=== PATIENT | male | born 1940 | race Caucasian/White ===

== ENCOUNTER 2020-07-05 08:11 | Outpatient (REF) | payer MEDICARE, SELFPAY | END 2020-07-05 08:40 | disposition other institution (70) | LOC: HO.SH 08:11 | PROVIDERS: PCP Internal Medicine; Referring Provider Internal Medicine; Visit Provider Internal Medicine | DX: Z13.89 Encounter for screening for other disorder (principal) ==

== ENCOUNTER 2020-07-05 09:00 | Outpatient (REF) | payer MEDICARE, SELFPAY ==
--- NOTE | 2020-07-05 13:36 | MHC.AU.P13 ---
Adult Audiological Evaluation Date of Visit: 07/05/20 Reason for Appointment: Audiologic re-evaluation to determine possible change in hearing ability prior to fitting of new hearing aids. Previous Hearing Test Results: 1940 Mild dropping to profound high frequency sensorineural hearing loss bilaterally. Speech understanding was 48% for the right ear and 36% for the left ear at a listening level of 85 dB HL. Hearing Instrument History- Right Ear: Kindergarten Paraprofessional: [employer] Model: TracsisEO P90-13T Serial Number: [id number] Battery Size: 13 Warranty: 09/25/2023 Service Plan: Repair and L&D Hearing Instrument History- Left Ear: Kindergarten Paraprofessional: [employer] Model: TracsisEAPU Solutions P90-13T Serial Number: [id number] Battery Size: 13 Warranty: 09/25/2023 Service Plan: Repair and L&D Otoscopy: Right Ear: Unremarkable Left Ear: Unremarkable Tympanometry: Right Ear: Normal Middle Ear System (Type A) Left Ear: Normal Middle Ear System (Type A) Hearing Evaluation: Transducer(s) Used: Insert Earphones Method: Conventional Audiometry Stimuli Used: Pure Tones Right Ear: Description of Hearing: Mild dropping to profound sensorineural hearing loss Left Ear: Description of Hearing: Mild dropping to profound sensorineural hearing loss Speech Recognition Threshold (SRT): Method Used: Monitored Live Voice Stimuli Used: Spondee Words Right Ear: 40 Left Ear: 40 Word Discrimination: Method: Recorded Lists Word Lists Used: NU-6 Right Ear: 64% at 85 dB HL Left Ear: 48% at 85 dB HL Comparison: Compared to the most recent evaluation: Hearing is stable. Compared to most recent evaluation: Recommendations: Recommendations: Audiological re-evaluation in one year. Recommendations (Other): Hearing Aid Fitting took place following today's audiologic re-evaluation. Medical clearance sent to Primary Care Doctor Scheduled Hearing Aid Follow-up for 07/17/2020 Diagnosis: Primary Diagnosis: H90.3 Bilateral Sensorineural Hearing Loss Services Performed: Services Performed: Comprehensive Audiological Evaluation (CPT 82480) Tympanometry (CPT 99561) Signature: Provider: Dallas Mitchell CCC-A
== END 2020-07-05 09:01 | disposition home or self-care (01) ==
LOC: HO.SH 09:00
PROVIDERS: PCP Internal Medicine; Referring Provider Internal Medicine; Visit Provider Internal Medicine
DX: H90.3 Sensorineural hearing loss, bilateral (principal)
CPT/HCPCS: 92557; 92567

== ENCOUNTER 2020-07-05 09:08 | Outpatient (REF) | payer SELFPAY | END 2020-07-05 09:09 | disposition home or self-care (01) | LOC: HO.HAP 09:08 | PROVIDERS: PCP Internal Medicine; Referring Provider Internal Medicine; Visit Provider Internal Medicine | DX: Z46.1 Encounter for fitting and adjustment of hearing aid (principal) | CPT/HCPCS: V5261 ==

== ENCOUNTER 2020-07-17 10:27 | Outpatient (REF) | payer SELFPAY | END 2020-07-17 10:28 | disposition home or self-care (01) | LOC: HO.HAP 10:27 | PROVIDERS: PCP Internal Medicine; Referring Provider Internal Medicine; Visit Provider Internal Medicine | DX: Z13.89 Encounter for screening for other disorder (principal) | CPT/HCPCS: 92700 ==

== ENCOUNTER 2020-08-07 09:56 | Outpatient (REF) | payer SELFPAY | END 2020-08-07 09:57 | disposition home or self-care (01) | LOC: HO.HAP 09:56 | PROVIDERS: PCP Internal Medicine; Referring Provider Internal Medicine; Visit Provider Internal Medicine | DX: Z13.89 Encounter for screening for other disorder (principal) | CPT/HCPCS: 92700 ==

== ENCOUNTER 2020-11-09 06:48 | Outpatient (REF) | payer MEDICARE, BC, SELFPAY ==
[2020-11-09 11:19] LABS: Hematocrit 49.5 % (42-52); Hemoglobin 16.4 g/dl (14.0-18.0); Mean Corpuscular HGB Conc 33.1 g/dl (31.0-36.0); Mean Corpuscular Hemoglobin 32.2 pg (27.0-33.0); Mean Corpuscular Volume 97.1 fL (80-98); Mean Platelet Volume 12.3 fL (9.4-12.4); Platelet Count 162 X10*3/uL (160-400); Red Cell Distribution Width 12.6 % (11.0-16.0)
[2020-11-09 12:11] LABS: TSH reflex Free T4 1.91 uIU/mL (0.32-4.0); Vitamin D 25-OH Total 23.3 ng/mL (>30)
[2020-11-09 12:17] LABS: Alanine Aminotransferase 25 U/L (0-40); Albumin Level 4.7 g/dL (3.5-5.0); Alkaline Phosphatase 59 U/L (39-117); Anion Gap 13 (12-20); Aspartate Amino Transferase 19 U/L (5-37); Bilirubin Total 0.7 mg/dL (0.0-1.0); Blood Urea Nitrogen 18 mg/dL (9-16); Calcium 9.1 mg/dL (8.4-10.2); Carbon Dioxide 27 mmol/L (22-29); Chloride 104 mmol/L (96-108); Cholesterol 238 mg/dL; Estimated Glomerular Filt Rate > 60; Glucose Fasting 96 mg/dL (60-99); HDL Cholesterol 87 mg/dL; LDL Cholesterol Calculated 133 mg/dl; Potassium 4.1 mmol/L (3.3-5.1); Sodium 140 mmol/L (135-145); Triglycerides 90 mg/dL
== END 2020-11-09 06:49 | disposition home or self-care (01) ==
LOC: HO.HMGCLDS 06:48
PROVIDERS: PCP Internal Medicine; Visit Provider Internal Medicine
DX: Z00.00 Encounter for general adult medical examination without abnormal findings (principal); I10 Essential (primary) hypertension; R53.83 Other fatigue; E53.1 Pyridoxine deficiency
CPT/HCPCS: 36415; 80053; 80061; 82306; 84443; 85027

== ENCOUNTER 2021-03-02 11:35 | Outpatient (REF) | payer SELFPAY | END 2021-03-02 11:36 | disposition home or self-care (01) | LOC: HO.HAP 11:35 | PROVIDERS: Visit Provider Internal Medicine | DX: Z13.89 Encounter for screening for other disorder (principal) ==

== ENCOUNTER 2021-03-15 10:24 | Outpatient (REF) | payer SELFPAY | END 2021-03-15 10:25 | disposition home or self-care (01) | LOC: HO.HAP 10:24 | PROVIDERS: Visit Provider Internal Medicine | DX: Z13.89 Encounter for screening for other disorder (principal) ==

== ENCOUNTER 2021-06-25 10:46 | Outpatient (REF) | payer SELFPAY | END 2021-06-25 10:47 | disposition home or self-care (01) | LOC: HO.HAP 10:46 | PROVIDERS: Visit Provider Internal Medicine | DX: Z13.89 Encounter for screening for other disorder (principal) ==

== ENCOUNTER 2021-07-03 07:58 | Outpatient (REF) | payer MEDICARE, BC, SELFPAY ==
--- NOTE | 2021-07-05 12:05 | MHC.AU.AHA ---
Adult Audiological Evaluation Date of Visit: 07/03/21 Delivery Aide Used: Not Applicable Reason for Appointment: Audiologic re-evaluation due to increasing hearing difficulties, particularly when background noise is present. Chato was seen last week due to this problem. Hearing aid maintenance was performed with some improvement in sound quality of the hearing aids and reduced need to increase the volume; however, significant speech understanding problems continue. Audiologic re-evaluation was advised. Previous Hearing Test Results: 07/05/2020 [facility] Bilateral mild dropping to profound sensorineural hearing loss with 64% speech discrimination ability in the right ear and 48% for the left at 85 dB HL using recorded speech. The left ear thresholds are poorer in the left ear at 4000 Hz. Ear History: Bothersome Tinnitus/Ringing/Noises in Ears: Both Ears Medical History: Medical History: High Blood Pressure Medication List: Amlodipine, Latanoprost, vitamins Hearing Instrument History- Right Ear: Automobile Damage Field Appraiser: [employer] Model: [email or web address] P90-13T Serial Number: [id number] Battery Size: 13 Repair Warranty: 09/25/2023 Dispensed By: [facility] Date of Fittin07/05/2020 Hearing Instrument History- Left Ear: Automobile Damage Field Appraiser: Phonak Model: atHomestarsEO P90-13T Serial Number: [id number] Battery Size: 13 Warranty: 09/25/2023 Dispensed By: [facility] Date of Fittin07/05/2020 Otoscopy: Right Ear: Unremarkable Left Ear: Unremarkable Tympanometry: Not performed at today's visit as all previous testing has indicated normal middle ear function bilaterally. Hearing Evaluation: Transducer(s) Used: Insert Earphones Bone Conduction Method: Conventional Audiometry Stimuli Used: Pure Tones Right Ear: Description of Hearing: Mild hearing thresholds at 250 and 500 Hz, dropping to a profound high frequency sensorineural hearing loss Left Ear: Description of Hearing: Mild hearing thresholds at 250 and 500 Hz, dropping to a profound high frequency sensorineural hearing loss. The left ear thresholds at 4000 and 6000 Hz are 10-20 dB poorer compared to the right ear. Speech Recognition Threshold (SRT): Method Used: Monitored Live Voice Stimuli Used: Spondee Words Right Ear: 40 dB HL Left Ear: 40 dB HL Word Discrimination: Method: Monitored Live Voice and Recorded Lists Word Lists Used: NU-6 Right Ear: Recorded List - 40% at 85 dB HL Live Monitored Speech - 44% at 85 dB HL Left Ear: Recorded List - 24% at 85 dB HL Live Monitored Speech - 32% at 85 dB HL Most Comfortable Level (MCL): Right Ear: 85 dB HL Left Ear: 85 dB HL Aided Testing: Binaural Aided Speech Discrimination - 76% at 60 dB HL Comparison: Compared to most recent evaluation: Right ear thresholds are stable with left ear levels at 4000 and 6000 Hz decreasing 5-10 dB. Unaided speech understanding scores have decreased approximately 20% for both ears. Interpretation of Results: Today's test results indicate decreased speech discrimination ability for both ears. Aided binaural speech understanding shows the hearing aids are providing significant benefit in this controlled test environment. Real world listening are likely much more difficult due to changing acoustics, distance from the primary person speaking, and background noise. With the degree of high frequency hearing loss and poor speech discrimination in the ideal listening situation, Chato's auditory system is unable to filter out background noise and fast speech becomes blurred and unintelligible. When Chato was first seen at this office in 2007, speech discrimination was 96% for the left ear and 84% for the left ear at 65 dB HL. showing gradual decline over the years despite consistent and appropriate auditory stimulation from hearing aids. We discussed limitations of the hearing aids when speech discrimination is below 50%. Hearing aids will increase the signal levels to be audible and provide benefit; however, they do not provide clarity of speech. Discussed and provided a handout regarding Communication Strategies to improve speech understanding as much as possible. Chato's communication partners need to provide the best speech signal possible and Chato's full attention is needed to understand the verbal message. Recommendations: - Due to the poor speech discrimination for both ears, discussed scheduling a Cochlear Implant consultation with Client Experience Specialist Dr. Isacc Castillo when Chato is ready to learn more information about these devices. - Hearing Aid Maintenance when sound quality of the hearing aids change. Reviewed how to clean hearing aid microphones and contacts himself on a regular basis to reduce need to come to office during last weeks appointment. - Audiological re-evaluation in one year. Will send a reminder card. Diagnosis: Primary Diagnosis: H90.3 Bilateral Sensorineural Hearing Loss Services Performed: Comprehensive Audiological Evaluation (CPT 21548) Signature: Provider: Dallas Mitchell, [facility]
== END 2021-07-03 07:59 | disposition home or self-care (01) ==
LOC: HO.SH 07:58
PROVIDERS: Visit Provider Internal Medicine
DX: H90.3 Sensorineural hearing loss, bilateral (principal)
CPT/HCPCS: 92557

== ENCOUNTER 2021-10-19 07:26 | Outpatient (REF) | payer MEDICARE, BC, SELFPAY ==
[2021-10-19 11:27] LABS: Hematocrit 51.4 % (42.0-52.0); Hemoglobin 17.3 g/dl (14.0-18.0); Mean Corpuscular HGB Conc 33.7 g/dl (31.0-36.0); Mean Corpuscular Hemoglobin 32.5 pg (27.0-33.0); Mean Corpuscular Volume 96.4 fL (80.0-98.0); Platelet Count 125 X10*3/uL (160-400); Red Blood Count 5.33 X10*6/uL (4.60-5.80); Red Cell Distribution Width 12.8 % (11.0-16.0); White Blood Count 8.1 X10*3/uL (4.8-10.8)
[2021-10-19 11:55] LABS: Alanine Aminotransferase 20 U/L (0-40); Albumin Level 4.6 g/dL (3.5-5.0); Alkaline Phosphatase 68 U/L (39-117); Anion Gap 15 (12-20); Aspartate Amino Transferase 16 U/L (5-37); Bilirubin Total 1.1 mg/dL (0.0-1.0); Blood Urea Nitrogen 13 mg/dL (9-16); Calcium 9.3 mg/dL (8.4-10.2); Carbon Dioxide 24 mmol/L (22-29); Chloride 104 mmol/L (96-108); Cholesterol 242 mg/dL; Estimated Glomerular Filt Rate > 60; Glucose Fasting 99 mg/dL (60-99); HDL Cholesterol 75 mg/dL; LDL Cholesterol Calculated 148 mg/dl; Sodium 139 mmol/L (135-145); Total Protein 7.1 g/dL (6.5-8.0); Triglycerides 95 mg/dL
[2021-10-19 12:04] LABS: TSH reflex Free T4 3.08 uIU/mL (0.32-4.0)
[2021-10-19 12:34] LABS: Creatinine Urine 91.03 mg/dL; Microalbum/Creatinine Ratio Ur 47.2 ug/mg cr
[2021-10-19 12:50] LABS: Prostate Specific Antigen 0.11 ng/mL (<0.05-4.0)
== END 2021-10-19 07:27 | disposition home or self-care (01) ==
LOC: HO.HMGCLDS 07:26
PROVIDERS: Visit Provider Internal Medicine
DX: Z00.00 Encounter for general adult medical examination without abnormal findings (principal); Z12.5 Encounter for screening for malignant neoplasm of prostate; I10 Essential (primary) hypertension; R53.0 Neoplastic (malignant) related fatigue; Z85.46 Personal history of malignant neoplasm of prostate
CPT/HCPCS: 36415; 80053; 80061; 82043; 84153; 84443; 85027

== ENCOUNTER 2022-07-01 09:05 | Outpatient (REF) | payer SELFPAY | END 2022-07-01 09:06 | disposition home or self-care (01) | LOC: HO.HAP 09:05 | PROVIDERS: Visit Provider Internal Medicine | DX: Z13.89 Encounter for screening for other disorder (principal) ==

== ENCOUNTER 2022-07-01 13:50 | Outpatient (REF) | payer SELFPAY ==
--- NOTE | 2022-07-01 15:25 | MHC.AU.HFU ---
Hearing Instrument Follow-Up- Binaural Date of Visit: 07/01/22 Right Ear: Mily Onofreo P90-13T SN: [id number] Color: Silver Fuentes Repair Warranty: 09/25/2023 Loss and Damage Warranty: 09/25/2023 Battery Size: 13 Radio/Tv Technician: 2P Type of Mold: SLIM TIP #[id number] Warranty until 10/27/2020 Type of Wax Guard: CeruStop Dispensed By: [facility] Date of Fittin07/05/2020 Left Ear: Mily Onofreo P90-13T SN: [id number] Color: Silver Fuentes Repair Warranty: 09/25/2023 Loss and Damage Warranty: 09/25/2023 Battery Size: 13 Radio/Tv Technician: 2P Type of Mold: SLIM TIP #[id number] Warranty ends 10/27/2020 Type of Wax Guard: CeruStop Dispensed By: [facility] Date of Fittin07/05/2020 Follow-Up Summary: Chato returned due to a persistent concern with his right hearing aid. Although he noted an improvement in the overall sound quality after the receivers were replaced this morning, the right hearing aid continues to have an intermittent clicking sound. He also reported that both hearing aids will make various beeping sounds, reportedly not related to the battery, phone notifications, or volume control use. Both hearing aids will be sent for in-warranty marine engineer cpvec repair to address these concerns. Loaner hearing aids were programmed and Chato is using his ear molds with the loaner devices. Recommendations: Chato will be contacted when his hearing aids are in from repair to schedule an appointment for picking crew supervisor so his ear molds can be switched from the loaners to his personal devices. Diagnosis Code(s): Primary Diagnosis: H90.3 Bilateral Sensorineural Hearing Loss Signature: Provider: Arabella Kumar, [facility]
== END 2022-07-01 13:51 | disposition home or self-care (01) ==
LOC: HO.HAP 13:50
PROVIDERS: Visit Provider Internal Medicine
DX: Z13.89 Encounter for screening for other disorder (principal)

== ENCOUNTER 2022-07-15 13:18 | Outpatient (REF) | payer SELFPAY ==
--- NOTE | 2022-07-15 14:30 | MHC.AU.HFU ---
Hearing Instrument Follow-Up- Binaural Date of Visit: 07/15/22 Right Ear: Mily Onofreo P90-13T SN: [id number] Color: Silver Fuentes Repair Warranty: 09/25/2023 Loss and Damage Warranty: 09/25/2023 Service Plan: 10/05/2023 Battery Size: 13 Land Classifier: 2P Type of Mold: SLIM TIP #[id number] Warranty until 10/27/2020 Type of Wax Guard: CeruStop Dispensed By: [facility] Date of Fittin07/05/2020 Left Ear: Mily Niñoeo P90-13T SN: [id number] Color: Silver Fuentes Repair Warranty: 09/25/2023 Loss and Damage Warranty: 09/25/2023 Service Plan: 09/25/2023 Battery Size: 13 Land Classifier: 2P Type of Mold: SLIM TIP #[id number] Warranty ends 10/27/2020 Type of Wax Guard: CeruStop Dispensed By: [facility] Date of Fittin07/05/2020 Follow-Up Summary: Chato picked up his repaired hearing aids and returned the loaners. Switched his ear molds from the loaners back to his hearing aids. Performed feedback manager integrity and re-paired the hearing aids to his cell phone and [employer] rebeca. Recommendations: Hearing instrument maintenance in 6 months, or sooner if needed. Patient will call if problems persist. Diagnosis Code(s): Primary Diagnosis: H90.3 Bilateral Sensorineural Hearing Loss Signature: Provider: Arabella Kumar, [facility]
== END 2022-07-15 13:19 | disposition home or self-care (01) ==
LOC: HO.HAP 13:18
PROVIDERS: Visit Provider Internal Medicine
DX: Z13.89 Encounter for screening for other disorder (principal)

== ENCOUNTER 2022-07-19 10:11 | Outpatient (REF) | payer SELFPAY ==
--- NOTE | 2022-07-19 12:04 | MHC.AU.HFU ---
Hearing Instrument Follow-Up- Binaural Date of Visit: 07/19/22 Right Ear: Mily Niñoeo P90-13T SN: [id number] Color: Silver Fuentes Repair Warranty: 09/25/2023 Loss and Damage Warranty: 09/25/2023 Service Plan: 10/05/2023 Battery Size: 13 Slate Mixer: 2P Type of Mold: SLIM TIP #[id number] Warranty until 10/27/2020 Type of Wax Guard: CeruStop Dispensed By: [facility] Date of Fittin07/05/2020 Left Ear: Mily Niñoeo P90-13T SN: [id number] Color: Silver Fuentes Repair Warranty: 09/25/2023 Loss and Damage Warranty: 09/25/2023 Service Plan: 09/25/2023 Battery Size: 13 Slate Mixer: 2P Type of Mold: SLIM TIP #[id number] Warranty ends 10/27/2020 Type of Wax Guard: CeruStop Dispensed By: [facility] Date of Fittin07/05/2020 Follow-Up Summary: Chato reported that the perceived sound quality in his hearing aids is different from the loaners and his previous settings. He noticed the overall volume is louder and he is experiencing more difficulty in background noise. At his previous appointment, the feedback chemistry account manager was performed which changed his settings slightly. Reprogrammed to settings from 06/25/2021. Chato noticed immediate improvement in office. Also adjusted the Noise Management settings in speech in noise, speech in loud noise, and comfort in noise settings at Chato's request. Confirmed connection to cell phone and explained how to adjust and save settings of specific programs (needed to disable keyboard sounds). Chato also reported that the hearing aids seem to randomly cut out at certain times but was unsure of the specifics. Recommendations: Chato will call if his hearing aids continue to cut out or if problems persist. Updated audiological evaluation and reprogramming, if necessary. Chato will request a doctor's order for a hearing test. Diagnosis Code(s): Primary Diagnosis: H90.3 Bilateral Sensorineural Hearing Loss Signature: Provider: Arabella Kumar, [facility]
== END 2022-07-19 10:12 | disposition home or self-care (01) ==
LOC: HO.HAP 10:11
PROVIDERS: Visit Provider Internal Medicine
DX: Z13.89 Encounter for screening for other disorder (principal)

== ENCOUNTER 2022-08-07 10:26 | Outpatient (REF) | payer MEDICARE, BC, SELFPAY ==
--- NOTE | 2022-08-07 12:59 | MHC.AU.HFU ---
Hearing Instrument Follow-Up- Binaural Date of Visit: 08/07/22 Right Ear: Mily Onofreo P90-13T SN: [id number] Color: Silver Fuentes Repair Warranty: 09/25/2023 Loss and Damage Warranty: 09/25/2023 Service Plan: 10/05/2023 Battery Size: 13 Child And Family Therapist: 2P Type of Mold: SLIM TIP #[id number] Warranty until 10/27/2020 Type of Wax Guard: CeruStop Dispensed By: [facility] Date of Fittin07/05/2020 Left Ear: Mily Niñoeo P90-13T SN: [id number] Color: Silver Fuentes Repair Warranty: 09/25/2023 Loss and Damage Warranty: 09/25/2023 Service Plan: 09/25/2023 Battery Size: 13 Child And Family Therapist: 2P Type of Mold: SLIM TIP #[id number] Warranty ends 10/27/2020 Type of Wax Guard: CeruStop Dispensed By: [facility] Date of Fittin07/05/2020 Follow-Up Summary: Chato reported that he still experiences difficulty in background noise and often finds himself adjusting the settings through his phone rebeca. Performed feedback manager validation and reprogrammed his hearing aids to his updated hearing evaluation using real ear measurements. Increased noise management settings as well. Discussed time to acclimate to new settings and hearing in background noise in relation to the severity of his hearing loss and word discrimination ability. Chato reported that he has tried a Gerson remote microphone in the past with intermittent success, depending on the speaker and environment. He is hoping to maximize any benefit from the hearing aids and continue to use his rebeca to adjust the settings, as needed. Recommendations: Hearing instrument maintenance in 6 months, or sooner if needed. Please contact our clinic with any questions or concerns. Patient will call if problems persist. Diagnosis Code(s): Primary Diagnosis: H90.3 Bilateral Sensorineural Hearing Loss Signature: Provider: Arabella Kumar, [facility]
== END 2022-08-07 10:27 | disposition home or self-care (01) ==
LOC: HO.SH 10:26
PROVIDERS: Visit Provider Internal Medicine
DX: H90.3 Sensorineural hearing loss, bilateral (principal)
CPT/HCPCS: 92557

== ENCOUNTER 2022-11-14 09:37 | Outpatient (REF) | payer SELFPAY | END 2022-11-14 09:38 | disposition home or self-care (01) | LOC: HO.HAP 09:37 | PROVIDERS: Visit Provider Internal Medicine | DX: Z46.1 Encounter for fitting and adjustment of hearing aid (principal) | CPT/HCPCS: 92700 ==

== ENCOUNTER 2022-12-27 06:02 | Outpatient (REF) | payer MEDICARE, BC, SELFPAY ==
[2022-12-27 11:56] LABS: Hematocrit 45.2 % (42.0-52.0); Mean Corpuscular HGB Conc 33.2 g/dl (31.0-36.0); Mean Corpuscular Hemoglobin 32.6 pg (27.0-33.0); Mean Corpuscular Volume 98.3 fL (80.0-98.0); Mean Platelet Volume 12.2 fL (9.4-12.4); Platelet Count 149 X10*3/uL (160-400); Red Cell Distribution Width 13.8 % (11.0-16.0)
[2022-12-27 12:23] LABS: Alanine Aminotransferase 18 U/L (0-40); Albumin Level 4.5 g/dL (3.5-5.0); Alkaline Phosphatase 66 U/L (39-117); Anion Gap 12 (12-20); Aspartate Amino Transferase 14 U/L (5-37); Bilirubin Total 0.6 mg/dL (0.0-1.0); Blood Urea Nitrogen 27 mg/dL (9-16); Calcium 9.4 mg/dL (8.4-10.2); Carbon Dioxide 26 mmol/L (22-29); Chloride 108 mmol/L (96-108); Cholesterol 205 mg/dL; Estimated Glomerular Filt Rate 39; Glucose Fasting 100 mg/dL (60-99); HDL Cholesterol 67 mg/dL; LDL Cholesterol Calculated 122 mg/dl; Potassium 4.3 mmol/L (3.3-5.1); Sodium 142 mmol/L (135-145); Total Protein 6.5 g/dL (6.5-8.0); Triglycerides 83 mg/dL
[2022-12-27 12:43] LABS: Creatinine Urine 252.45 mg/dL; Microalbum/Creatinine Ratio Ur 5.1 ug/mg cr
[2022-12-27 12:50] LABS: Prostate Specific Antigen < 0.10 ng/mL (<0.05-4.0); TSH reflex Free T4 1.56 uIU/mL (0.32-4.0); Vitamin B12 378 pg/mL (200-900)
== END 2022-12-27 06:03 | disposition home or self-care (01) ==
LOC: HO.HMGCLDS 06:02
PROVIDERS: PCP Internal Medicine; Visit Provider Internal Medicine
DX: Z00.00 Encounter for general adult medical examination without abnormal findings (principal); Z12.5 Encounter for screening for malignant neoplasm of prostate; I10 Essential (primary) hypertension; R53.83 Other fatigue
CPT/HCPCS: 36415; 80053; 80061; 82043; 82607; 84153; 84443; 85027

== ENCOUNTER 2023-01-13 11:54 | Outpatient (REF) | payer MEDICARE, BC, SELFPAY ==
[2023-01-13 15:25] LABS: Anion Gap 13 (12-20); Blood Urea Nitrogen 26 mg/dL (9-16); Calcium 9.5 mg/dL (8.4-10.2); Carbon Dioxide 26 mmol/L (22-29); Chloride 104 mmol/L (96-108); Estimated Glomerular Filt Rate 45; Glucose Random 97 mg/dL (60-115); Potassium 4.2 mmol/L (3.3-5.1); Sodium 139 mmol/L (135-145)
== END 2023-01-13 11:55 | disposition home or self-care (01) ==
LOC: HO.HMGCLDS 11:54
PROVIDERS: PCP Internal Medicine; Visit Provider Internal Medicine
DX: R79.89 Other specified abnormal findings of blood chemistry (principal)
CPT/HCPCS: 36415; 80048

== ENCOUNTER 2024-06-09 08:53 | Outpatient (REF) | payer MEDICARE, BC, SELFPAY | END 2024-06-09 08:54 | disposition home or self-care (01) | LOC: HO.SH 08:53 | PROVIDERS: PCP Internal Medicine; Visit Provider Family Medicine | DX: Z01.118 Encounter for examination of ears and hearing with other abnormal findings (principal); H90.3 Sensorineural hearing loss, bilateral | CPT/HCPCS: 92552; 92556 ==

== ENCOUNTER 2025-02-24 07:58 | Outpatient (REF) | payer SELFPAY ==
--- OUTSIDE RECORDS SUMMARY | 2025-02-24 08:04 | XMS_ITS | Clinical Summary ---
Author Organization [facility] Address [address] [place] [address] Phone Care Team Providers Care Auto Phone Installer Name Role Phone Patrick Mcmillan DO Primary Care Provider [phone] Encounters Date Type Department Care Team Description 02/16/2025 Documentation Only [facility], [address] [place] [address] Vale Gonzalez MA from Last 3 Months Social History Tobacco Use Types Packs/Day Years Used Date Smoking Tobacco: Never Assessed Sex and Gender Information Value Date Recorded Sex Assigned at Not on file Legal Sex Male 3:16 PM EDT Gender Identity Not on file Sexual Orientation Not on file Plan of Treatment Health Maintenance Due Date Last Done Comments Pneumococcal Vaccine: 50+ Ye ars (1 of 2 - PCV) 1959 Influenza Vaccine (Season Ended) 2025 Hepatitis B Vaccine Aged Out No longe r eligible based on patient's age to complete this topic Insurance Medicare [facility] Care Teams Auto Phone Installer Relationship Specialty Start Date End Date Patrick Mcmillan DO [address] [place] [phone] PCP - General Family Medicine 02/16/25
--- NOTE | 2025-02-24 14:22 | MHC.AU.HA3 ---
Hearing Instrument Follow-Up- Binaural Date of Visit: 02/24/25 Right Ear: Make, Model, Color, Serial Number: Mily Wilkerson P90-13T SN: [id number] Color: Silver Fuentes Patient Care Coordinator Repair Warranty: 09/25/2023 Patient Care Coordinator Loss and Damage Warranty: 09/25/2023 [facility] Service Plan: 10/05/2023 Battery Size: 13 County Demonstrator/Slim Tube: 2P Earmold/Dome/CShell/SlimTip:SLIM TIP #[id number] Warranty until 10/27/2020 Type of Wax Guard: CeruStop Dispensed By: [facility] Date of Fittin07/05/2020 Left Ear: Make, Model, Color, Serial Number: Mily Wilkerson P90-13T SN: [id number] Color: Silver Fuentes Patient Care Coordinator Repair Warranty: 09/25/2023 Patient Care Coordinator Loss and Damage Warranty: 09/25/2023 [facility] Service Plan: 09/25/2023 Battery Size: 13 County Demonstrator/Slim Tube: 2P Earmold/Dome/CShell/SlimTip: SLIM TIP #[id number] Warranty ends 10/27/2020 Type of Wax Guard: CeruStop Dispensed By: [facility] Date of Fittin07/05/2020 Follow-Up Summary: Right hearing aid dropped off c/o not amplifying. Found wax guard clogged. Cleaned aid, earmold, replaced wax guard. Listening check positive. Recommendations: Recommendations: Hearing instrument follow-up or maintenance as needed. Diagnosis Code(s): Primary Diagnosis: H90.3 Bilateral Sensorineural Hearing Loss Signature: Provider: Arabella Oshea, [facility]
== END 2025-02-24 07:59 | disposition home or self-care (01) ==
LOC: HO.SH 07:58
PROVIDERS: Visit Provider Student in an Organized Health Care Education/Training Program
DX: Z13.89 Encounter for screening for other disorder (principal)

== ENCOUNTER 2025-02-25 09:41 | Outpatient (REF) | payer SELFPAY ==
--- OUTSIDE RECORDS SUMMARY | 2025-02-25 09:53 | XMS_ITS | Clinical Summary ---
Author Organization [facility] Address [address] [place] [address] Phone Care Team Providers Care Smalltalk Developer Name Role Phone Patrick Mcmillan DO Primary Care Provider [phone] Encounters Date Type Department Care Team Description 02/16/2025 Documentation Only [facility], [address] [place] [address] Vale Gonzalez MA from Last [...] age to complete this topic Insurance Medicare [facility] Care Teams Smalltalk Developer Relationship Specialty Start Date End Date Patrick Mcmillan DO [address] [place] [id number] PCP - General Family Medicine 02/16/25
== END 2025-02-25 09:42 | disposition home or self-care (01) ==
LOC: HO.SH 09:41
PROVIDERS: Visit Provider Family Medicine
DX: Z46.1 Encounter for fitting and adjustment of hearing aid (principal)
CPT/HCPCS: 92593

== ENCOUNTER 2025-04-06 11:07 | Outpatient (AMB) | payer MEDICARE, BC, SELFPAY ==
--- NOTE | 2025-04-06 11:25 | HO.NEPHOV ---
Vital Signs 04/06/25 11:29 Height 6 ft Weight 202 lb 8 oz BMI 27.5 BP 126/70 Blood Pressure Location Lt brachial Position Sitting Pulse 65 Pulse Source Pulse Oximeter Pulse Oximetry (%) 92 Oxygen Delivery Method Room Air Intake Visit Reasons: ENP DX CKD 3-Conf Accompanied by: Self / Same As Patient Allergies No Known Allergies (No Known Allergies*) Allergy (Verified 04/06/25 11:30) HPI Comments Details: I had the pleasure of seeing Chato in consultation for CKD and hypertension. He is known to have hypertension for a long time and had been on losartan/hydrochlorothiazide and recently carvedilol. His blood pressure has been fluctuant. He has lot of stressors at home. 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 He has history of prostate cancer which has been treated. He has history of bilateral sensorineural deafness. He denies any coronary artery disease, carotid stenosis, congestive heart failure, CVA, peripheral arterial disease. He has no history of hematuria, proteinuria, epistaxis, photosensitivity, recurrent sinusitis, sore throat, excessive nonsteroidal anti-inflammatory medication intake, new bone or back pain. His recent serum creatinine has been around 1.5. [facility] Medical History (Updated 04/06/25 @ 11:56 by Seth Saunders MD) Chronic kidney disease, stage 3a Melanoma of left upper arm Insomnia History of basal cell carcinoma of skin Hearing loss sensory, bilateral Glaucoma Essential (primary) hypertension Surgical History (Updated 04/06/25 @ 11:28 by Acacia Monsalve MA) History of back surgery H/O arthroscopy of knee H/O arthroscopy of shoulder Family History (Updated 04/06/25 @ 11:28 by Acacia Monsalve MA) Mother Cancer Social History (Updated 04/06/25 @ 11:27 by Acacia Monsalve MA) Alcohol intake: current Patient Tobacco Use Status: Never used Tobacco Physical Exam Vital Signs: Last Vital Signs Pulse 65 04/06/25 11:29 BP 126/70 04/06/25 11:29 Pulse Ox 92 04/06/25 11:29 Oxygen Delivery Method Room Air 04/06/25 11:29 BMI result Body Mass Index 27.5 Const General: comfortable and no acute distress Orientation/consciousness: patient oriented x3 HEENT Head: Yes normocephalic Mouth: Normal oral and palatal mucosa present Eyes EOM: EOMs intact bilaterally Neck Neck: Yes supple Resp Auscultation: clear to auscultation bilaterally Cardio Jugular venous distension: no JVD Rate: regular rate GI Palpation (GI): Soft to palpation Auscultation: normal bowel sounds General: Yes no CVA tenderness Back/Spine/Pelvis Back: no CVA tenderness Skin General skin exam: no rashes or lesions noted Neuro General: patient oriented x3 and moves all extremities Extrem General: Yes no pedal edema Assessment & Plan Assessment & Plan (1) Essential (primary) hypertension: Code(s): I10 - Essential (primary) hypertension Category: Medical (2) Chronic kidney disease, stage 3a: Code(s): N18.31 - Chronic kidney disease, stage 3a Category: Medical Plan Chato has stage III CKD with hypertension. His CKD may be due to hypertension and age related loss of renal function. He may be having renovascular disease. I have ordered extensive workup including imaging studies. Based on the data I will consider backing off on losartan hydrochlorothiazide to see whether his renal functions will improve. He is currently on carvedilol 12.5 mg twice daily which I encouraged him to continue. He will be a candidate for SGLT2 inhibitor. There is no indication for any renal biopsy now. He does not take excessive nonsteroidal anti-inflammatories and maintain good hydration. All these possibilities have been discussed in detail. Further management is pending evolving data. Answered all questions. Orders: Orders Protein Creatinine Ratio, Ur 2 Weeks I10 - Essential (primary) hypertension, N18.31 - Chronic kidney disease, stage 3a Anti Glomerular Basement Memb 2 Weeks I10 - Essential (primary) hypertension, N18.31 - Chronic kidney disease, stage 3a Immunofixation Pnl, Serum 2 Weeks I10 - Essential (primary) hypertension, N18.31 - Chronic kidney disease, stage 3a Phospholipase A2 Receptor Pnl 2 Weeks I10 - Essential (primary) hypertension, N18.31 - Chronic kidney disease, stage 3a Calcium 2 Weeks I10 - Essential (primary) hypertension, N18.31 - Chronic kidney disease, stage 3a UA and rflx microscopic 2 Weeks I10 - Essential (primary) hypertension, N18.31 - Chronic kidney disease, stage 3a Immunofixation, Random Urine 2 Weeks I10 - Essential (primary) hypertension, N18.31 - Chronic kidney disease, stage 3a Anti DNA DS Antibody 2 Weeks I10 - Essential (primary) hypertension, N18.31 - Chronic kidney disease, stage 3a Myeloperoxidase Antibody 2 Weeks I10 - Essential (primary) hypertension, N18.31 - Chronic kidney disease, stage 3a Proteinase 3 PR3 Antibodies 2 Weeks I10 - Essential (primary) hypertension, N18.31 - Chronic kidney disease, stage 3a Complement C3 2 Weeks I10 - Essential (primary) hypertension, N18.31 - Chronic kidney disease, stage 3a Complement C4 2 Weeks I10 - Essential (primary) hypertension, N18.31 - Chronic kidney disease, stage 3a Electrolytes 2 Weeks I10 - Essential (primary) hypertension, N18.31 - Chronic kidney disease, stage 3a Blood Urea Nitrogen 2 Weeks I10 - Essential (primary) hypertension, N18.31 - Chronic kidney disease, stage 3a Creatinine 2 Weeks I10 - Essential (primary) hypertension, N18.31 - Chronic kidney disease, stage 3a US renal doppler 2 Weeks I10 - Essential (primary) hypertension, N18.31 - Chronic kidney disease, stage 3a Coding Level of Care Code New Pt Level 4 (52752) Diagnoses Essential (primary) hypertension I10 Chronic kidney disease, stage 3a N18.31
[2025-04-06 11:29] VITALS: BP 126/70; PULSE 65; O2SAT 92; BMI 27.5
--- OUTSIDE RECORDS SUMMARY | 2025-04-06 12:11 | XMS_ITS | Clinical Summary ---
Author Organization [facility] Address [address] [place], [place] [id number] Care Team Providers Care Chimney Construction Supervisor Name Role Phone Chato Hugo MD Primary Care Provider Unavail able Allergies No known active allergies Medications Medication Sig Dispensed Refills Start Date End Date Status amLODIPine (NORVASC) tablet 10 mg 0 09/09/2018 Active ibuprofen (ADVIL,MOTRIN) 200 MG tablet Take 200 mg by mouth every 6 (six) hours as needed for pain. 0 Active traMADol (ULTRAM) 50 MG tablet Take 50 mg by mouth every 6 (six) hours as needed for pain. 30 tablet 0 11/15/2021 Active benazepril (LOTENSIN) 20 MG tablet 0 12/09/2021 Active escitalopram (LEXAPRO) tablet 10 mg Take 10 mg by mouth daily. 0 12/06/2021 Active oxyCODONE (ROXICODONE) 5 MG immediate release tablet Take 5 mg by mouth every 8 (eight) hours as needed. for pain 0 01/03/2022 Active hydroCHLOROthiazide (HYDRODIURIL) tablet 25 mg Take 25 mg by mouth daily. 0 01/29/2022 Active Active Problems Problem Noted Date Diagnosed Date Shoulder impingement syndrome, left 11/25/2018 Complete tear of left rotator cuff 10/28/2018 Social History Tobacco Use Types Packs/Day Years Used Date Smoking Tobacco: Never Assessed Sex and Gender Information Value Date Recorded Sex Assigned at Not on file Gender Identity Not on file Sexual Orientation Not on file Job Start Date Occupation Industry Not on file Not on file Not on file Last Filed Vital Signs Vital Sign Reading Time Taken Comments Blood Pressure - - Pulse - - Temperature - - Respiratory Rate - - Oxygen Saturation - - Inhaled Oxygen Concentration - - Weight 95.3 kg (210 lb) 11/09/2021 9:19 AM EST Height 182.9 cm (6') 11/09/2021 9:19 AM EST Body Mass Index 28.48 11/09/2021 9:19 AM EST Plan of Treatment Health Maintenance Due Date Last Done Comments COVID-19 Vaccine (#1) 1939 Depression Screening 1951 Preventative Health Evaluation 1957 DTap / Tdap / Td (1 - Tdap) 1958 Shingrix-Zoster Vaccine (1 of 2) 1989 Fall Risk Assessment 2004 Pneumococcal Vaccine (1 of 1 - PCV) 2004 RSV Adult > 60+ Yrs or Pregn ant (1 - 1-dose 75+ series) 2014 Influenza Vaccine (#1) 2025 Hepatitis B Vaccines Aged Out No long er eligible based on patient's age to complete this topic RSV Ped < 20 months Aged Out No longe r eligible based on patient's age to complete this topic Care Teams Chimney Construction Supervisor Relationship Specialty Start Date End Date Chato Hugo MD PCP - General Internal Medicine 10/12/18
--- OUTSIDE RECORDS SUMMARY | 2025-04-06 12:11 | XMS_ITS | Patient Health Record ---
Author Organization [facility] Address [address] [place] [address] Care Team Providers Care Stringing Machine Operator Name Role Phone Mode Cesar Jr Reason For Referral No Information Plan Of Treatment No Information
--- OUTSIDE RECORDS SUMMARY | 2025-04-06 12:11 | XMS_ITS | Clinical Summary ---
Author Organization [facility] Address [address] [place] [address] Phone Care Team Providers Care Newspaper Photojournalist Name Role Phone Patrick Mcmillan DO Primary Care Provider [phone] Encounters Date Type Department Care Team Description 03/08/2025 Telephone [facility] [address] [place] [address] Vale Gonzalez MA 02/16/2025 Documentation Only [facility] [address] [place] [address] Vale Gonzalez MA from Last [...] of 2 - PCV) 1958 Influenza Vaccine (#1) 2025 Hepatitis B Vaccine Aged Out No longe r eligible based on patient's age to complete this topic Insurance Medicare [facility] Care Teams Newspaper Photojournalist Relationship Specialty Start Date End Date Patrick Mcmillan DO [address] [place] [id number] PCP - General Family Medicine 02/16/25
== END 2025-04-06 12:03 | disposition home or self-care (01) ==
LOC: HO.HKA 11:07
PROVIDERS: Visit Provider Internal Medicine Nephrology
DX: I10 Essential (primary) hypertension (principal); N18.31 Chronic kidney disease, stage 3a
CPT/HCPCS: 99204

== ENCOUNTER → 2025-04-06 11:07 | Outpatient (BNVA) | payer MEDICARE, BC, SELFPAY | PROVIDERS: Visit Provider Internal Medicine Nephrology | DX: I12.9 Hypertensive chronic kidney disease with stage 1 through stage 4 chronic kidney disease, or unspecified chronic kidney disease (principal); N18.31 Chronic kidney disease, stage 3a | CPT/HCPCS: 99202 ==

== ENCOUNTER 2025-04-27 09:02 | Outpatient (AMB) | payer MEDICARE, BC, SELFPAY ==
--- NOTE | 2025-04-27 09:18 | HO.NEPHOV_ITS ---
Vital Signs 04/27/25 09:20 Height 6 ft Weight 199 lb 8 oz BMI 27.1 BP 124/70 Blood Pressure Location Lt brachial Position Sitting Pulse 65 Pulse Source Pulse Oximeter Pulse Oximetry (%) 96 Oxygen Delivery Method Room Air Intake Visit Reasons: Sooner appt Per Em Manager Dish Required: No Accompanied by: Self / Same As Patient Allergies No Known Allergies (No Known Allergies*) Allergy (Verified 04/27/25 09:20) HPI Comments Details: I had the pleasure of seeing Chato in follow up for CKD and hypertension. He is known to have hypertension for a long time and had been on losartan/hydrochlorothiazide as well as carvedilol. His blood pressure has been fluctuant. He has lot of stressors at home. 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 He has history of prostate cancer which has been treated. He has history of bilateral sensorineural deafness. He denies any coronary artery disease, carotid stenosis, congestive heart failure, CVA, peripheral arterial disease. He has no history of hematuria, proteinuria, epistaxis, photosensitivity, recurrent sinusitis, sore throat, excessive nonsteroidal anti- inflammatory medication intake, new bone or back pain. His recent serum creatinine has been around 1.5. 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 [facility] Medical History (Updated 04/27/25 @ 09:22 by Seth Saunders MD) Chronic kidney disease, stage 3a Melanoma of left upper arm Insomnia History of basal cell carcinoma of skin Hearing loss sensory, bilateral Glaucoma Essential (primary) hypertension Surgical History (Updated 04/06/25 @ 11:28 by Acacia Monsalve MA) History of back surgery H/O arthroscopy of knee H/O arthroscopy of shoulder Family History (Updated 04/06/25 @ 11:28 by Acacia Monsalve MA) Mother Cancer Social History (Updated 04/06/25 @ 11:27 by Acacia Monsalve MA) Alcohol intake: current Patient Tobacco Use Status: Never used Tobacco Review of Systems Const All systems reviewed & are unremarkable except as noted in HPI and below Physical Exam Const General: comfortable and no acute distress Orientation/consciousness: patient oriented x3 HEENT Head: Yes normocephalic Mouth: Normal oral and palatal mucosa present Eyes EOM: EOMs intact bilaterally Neck Neck: Yes supple Resp Auscultation: clear to auscultation bilaterally Cardio Jugular venous distension: no JVD Rate: regular rate GI Palpation (GI): Soft to palpation Auscultation: normal bowel sounds General: Yes no CVA tenderness Back/Spine/Pelvis Back: no CVA tenderness Skin General skin exam: no rashes or lesions noted Neuro General: patient oriented x3 and moves all extremities Extrem General: Yes no pedal edema Results Reviewed Nephrology Results: Hgb, (14.0-18.0) 15.0 g/dl 12/27/22 WBC, (4.8-10.8) 8.0 X10*3/uL 12/27/22 Plt Count, (160-400) 149 X10*3/uL L 12/27/22 Sodium, (135-145) 139 mmol/L 01/13/23 Potassium, (3.3-5.1) 4.2 mmol/L 01/13/23 Chloride, (96-108) 104 mmol/L 01/13/23 Carbon Dioxide, (22-29) 26 mmol/L 01/13/23 BUN, (9-16) 26 mg/dL H 01/13/23 Creatinine, (0.5-1.4) 1.50 mg/dL H 01/13/23 Calcium, (8.4-10.2) 9.5 mg/dL 01/13/23 Urine Creatinine 252.45 mg/dL 12/27/22 Assessment & Plan Assessment & Plan (1) P-ANCA titer positive: Code(s): R76.8 - Other specified abnormal immunological findings in serum Category: Medical (2) Essential (primary) hypertension: Code(s): I10 - Essential (primary) hypertension Category: Medical (3) Chronic kidney disease, stage 3a: Code(s): N18.31 - Chronic kidney disease, stage 3a Category: Medical Plan Chato has stage III CKD with hypertension. His CKD may be due to hypertension and age related loss of renal function. His extensive workup showed P ANCA positivity. He has no RBC in the urine. He is currently on carvedilol 12.5 mg twice daily which I encouraged him to continue. He will be a candidate for SGLT2 inhibitor. There is no indication for any renal biopsy now. I referred him to Rheumatology. He likely will need Rituximab. I ordered CBC, INR , ANCA and repeat renal funtion today. His renal USS is pending. He does not take excessive nonsteroidal anti-inflammatories and maintain good hydration. All these possibilities have been discussed in detail. Further management is pending evolving data. Answered all questions. Orders: Orders Complete Blood Count Auto Diff Today I10 - Essential (primary) hypertension, N18.31 - Chronic kidney disease, stage 3a, R76.8 - Other specified abnormal immunological findings in serum Prothrombin Time INR Today I10 - Essential (primary) hypertension, N18.31 - Chronic kidney disease, stage 3a, R76.8 - Other specified abnormal immunological findings in serum Electrolytes Today I10 - Essential (primary) hypertension, N18.31 - Chronic kidney disease, stage 3a, R76.8 - Other specified abnormal immunological findings in serum Blood Urea Nitrogen Today I10 - Essential (primary) hypertension, N18.31 - Chronic kidney disease, stage 3a, R76.8 - Other specified abnormal immunological findings in serum ANCA Vasculitides Today I10 - Essential (primary) hypertension, N18.31 - Chronic kidney disease, stage 3a, R76.8 - Other specified abnormal immunological findings in serum Creatinine Today I10 - Essential (primary) hypertension, N18.31 - Chronic kidney disease, stage 3a, R76.8 - Other specified abnormal immunological findings in serum Referrals Rheumatology Referral R76.8 - Other specified abnormal immunological findings in serum Coding Level of Care Code Est Pt Level 4 (58447) Diagnoses P-ANCA titer positive R76.8 Essential (primary) hypertension I10 Chronic kidney disease, stage 3a N18.31
[2025-04-27 09:20] VITALS: BP 124/70; PULSE 65; O2SAT 96; BMI 27.1
--- OUTSIDE RECORDS SUMMARY | 2025-04-27 09:45 | XMS_ITS | Clinical Summary ---
Author Organization [facility] Address [address] [place] [address] Phone Care Team Providers Care Musical Performer Name Role Phone Patrick Mcmillan DO Primary Care Provider [phone] Encounters Date Type Department Care Team Description 03/08/2025 Telephone [facility] [address] [place] [address] Vale Gonzalez MA 02/16/2025 Documentation Only [facility] [address] [place] [address] Vale Gonzalez MA from Last [...] age to complete this topic Insurance Medicare [facility] Care Teams Musical Performer Relationship Specialty Start Date End Date Patrick Mcmillan DO [address] [place] [id number] PCP - General Family Medicine 02/16/25
--- OUTSIDE RECORDS SUMMARY | 2025-04-27 09:46 | XMS_ITS | Patient Health Record ---
Author Organization [facility] Address [address] [place] [address] Care Team Providers Care Nsh Teacher Name Role Phone Mode Cesar Jr Reason For Referral No Information Plan Of Treatment No Information
--- OUTSIDE RECORDS SUMMARY | 2025-04-27 09:46 | XMS_ITS | Clinical Summary ---
Author Organization [facility] Address [address] [place], [place] [id number] Care Team Providers Care Finance Vice President Name Role Phone Chato Hugo MD Primary [...] age to complete this topic Care Teams Finance Vice President Relationship Specialty Start Date End Date Chato Hugo MD PCP - General Internal Medicine 10/12/18
== END 2025-04-27 09:52 | disposition home or self-care (01) ==
LOC: HO.HKA 09:03
PROVIDERS: PCP Student in an Organized Health Care Education/Training Program; Visit Provider Internal Medicine Nephrology
DX: R76.8 Other specified abnormal immunological findings in serum (principal); I10 Essential (primary) hypertension; N18.31 Chronic kidney disease, stage 3a
CPT/HCPCS: 99214

== ENCOUNTER → 2025-04-27 09:02 | Outpatient (BNVA) | payer MEDICARE, BC, SELFPAY | PROVIDERS: Visit Provider Internal Medicine Nephrology | DX: R76.8 Other specified abnormal immunological findings in serum (principal); I12.9 Hypertensive chronic kidney disease with stage 1 through stage 4 chronic kidney disease, or unspecified chronic kidney disease; N18.31 Chronic kidney disease, stage 3a | CPT/HCPCS: 99212 ==

== ENCOUNTER 2025-04-27 10:21 | Outpatient (REF) | payer MEDICARE, BC, SELFPAY ==
[2025-04-27 13:36] LABS: Appearance Urine Turbid; Glucose Urine UA Negative (Negative); PH 5.5 (5.0-9.0); Specific Gravity - Urine 1.020 (1.005-1.025); UMIC TRIGGER UA YES
[2025-04-27 13:56] LABS: Calcium 9.2 mg/dL (8.4-10.2)
[2025-04-27 14:25] LABS: Protein/Creatinine Ratio, Ur 0.20 (<0.2); Total Protein Urine Random 22 mg/dL (<12)
[2025-04-28 14:23] LABS: Anti Glomerular Basement Memb <1.0 AI; Proteinase 3 PR3 Antibodies <1.0 AI
[2025-05-03 21:48] LABS: Phospholipase A2 IgG ELISA <4 RU/mL; Phospholipase A2 IgG IFA NEGATIVE (NEGATIVE)
== END 2025-04-27 10:22 | disposition home or self-care (01) ==
LOC: HO.10HDL 10:21
PROVIDERS: Visit Provider Internal Medicine Nephrology
DX: I12.9 Hypertensive chronic kidney disease with stage 1 through stage 4 chronic kidney disease, or unspecified chronic kidney disease (principal); N18.31 Chronic kidney disease, stage 3a; R76.8 Other specified abnormal immunological findings in serum; Z01.84 Encounter for antibody response examination
CPT/HCPCS: 81001; 82310; 82570; 82784; 83520; 84156; 86021; 86160; 86225; 86255; 86334; 86335

== ENCOUNTER 2025-05-16 09:41 | Outpatient (REF) | payer MEDICARE, BC, SELFPAY ==
--- NOTE | ~2025-05-16 | US_ITS ---
EXAMINATION: Ultrasound renal Doppler CLINICAL INDICATION: Chronic kidney disease stage IIIa. COMPARISON: None. TECHNIQUE: Fuentes scale retroperitoneal imaging of kidneys and retroperitoneal Doppler imaging was performed. FINDINGS: RIGHT KIDNEY: The right kidney measures 11.4 x 5.5 x 6.2 cm. There is normal cortical thickness. There is anechoic cyst mid pole measuring 1.1 x 1.2 x 1.0 cm. No echogenic stone or On Doppler imaging, Peak systolic velocity proximal renal artery measures 1 24 cm/second, mid segment measures 92 cm/second and distal segment measures 80.9 cm/second. The resistive index is averaged 0.8. The renal aortic ratio cannot be calculated due to elevated aortic velocity of 1 13 cm/second. Left kidney: The left kidney measures 12.7 x 5.3 x 4.7 cm. There is normal cortical thickness. There is anechoic cyst mid pole measuring 2.2 x 2.0 x 2.8 cm. There are 2 echogenic stones in midpole measuring 0.7 x 0.5 at 0.8 cm and lower pole measuring 0.7 x 0.4 x 0.5 cm. There is no caliectasis or hydronephrosis. On Doppler imaging, Peak systolic velocity proximal renal artery measures 79.9 cm/second, mid segment measures 69.4 cm/second and distal segment measures 16.2 cm/second. Renal aortic ratio cannot be calculated due to elevated aortic velocity of 1 13 cm/second. Resistive index averages 0.7. The bladder is not imaged. US/US renal doppler IMPRESSION: Bilateral renal cysts. No radiopaque renal calculi. Normal bilateral renal Doppler exam. The aortic velocity is elevated measuring 1 13 cm/second. Electronically signed by: John Luciano MD 05/16/2025 11:33 AM EDT
--- OUTSIDE RECORDS SUMMARY | 2025-05-16 11:05 | XMS_ITS | Clinical Summary ---
Author Organization [facility] Address [address] [place] [address] Phone Care Team Providers Care Construction Equipment Mechanic Helper Name Role Phone Patrick Mcmillan DO Primary Care Provider [phone] Encounters Date Type Department Care Team Description 03/08/2025 Telephone [facility] [address] [place] [address] Vale Gonzalez MA 02/16/2025 Documentation Only [facility] [address] [place] [address] Vale Gonzalez MA from Last [...] age to complete this topic Insurance Medicare [facility] Care Teams Construction Equipment Mechanic Helper Relationship Specialty Start Date End Date Patrick Mcmillan DO [address] [place] [id number] PCP - General Family Medicine 02/16/25
--- OUTSIDE RECORDS SUMMARY | 2025-05-16 11:05 | XMS_ITS | Patient Health Record ---
Author Organization [facility] Address [address] [place] [address] Care Team Providers Care Catch Basin Cleaner Name Role Phone Mode Cesar Jr Reason For Referral No Information Plan Of Treatment No Information
--- OUTSIDE RECORDS SUMMARY | 2025-05-16 11:05 | XMS_ITS | Clinical Summary ---
Author Organization [facility] Address [address] [place], [place] [id number] Care Team Providers Care Production Graphic Designer Name Role Phone Chato Hugo MD Primary [...] age to complete this topic Care Teams Production Graphic Designer Relationship Specialty Start Date End Date Chato Hugo MD PCP - General Internal Medicine 10/12/18
--- OUTSIDE RECORDS SUMMARY | 2025-05-16 11:05 | XMS_ITS | Encounter Summary ---
Author Organization [facility], Address [address] [place] [address] Phone Care Team Providers Care Assistant Grocery Name Role Phone Patrick Mcmillan DO Primary Care Provider [phone] Encounter Details Date Type Department Care Team (Late st Contact Info) Description 02/16/2025 Documentation Only [facility], [address] [place] [address] Vale Gonzalez [place] [address] [place] [address] Social History Tobacco Use Types Packs/Day Years Used Date Smoking Tobacco: Never Assessed Sex and Gender Information Value Date Recorded Sex Assigned at Not on file Legal Sex Male 3:16 PM EDT Gender Identity Not on file Sexual Orientation Not on file documented as of this encounter Plan of Treatment Not on file documented as of this encounter Visit Diagnoses Not on filedocumented in this encounter Care Teams Assistant Grocery Relationship Specialty Start Date End Date Patrick Mcmillan DO [address] [place] [phone] PCP - General Family Medicine 02/16/25 documented as of this encounter
== END 2025-05-16 09:42 | disposition home or self-care (01) ==
LOC: HO.US 09:41
PROVIDERS: Visit Provider Internal Medicine Nephrology
DX: I12.9 Hypertensive chronic kidney disease with stage 1 through stage 4 chronic kidney disease, or unspecified chronic kidney disease (principal); N18.31 Chronic kidney disease, stage 3a
CPT/HCPCS: 93975

== ENCOUNTER → 2025-05-16 09:43 | Outpatient (BNV) | payer MEDICARE, BC, SELFPAY | PROVIDERS: Visit Provider Radiology Diagnostic Radiology | DX: I10 Essential (primary) hypertension (principal); N28.1 Cyst of kidney, acquired; N18.31 Chronic kidney disease, stage 3a | CPT/HCPCS: 93975 ==

== ENCOUNTER 2025-06-01 10:35 | Outpatient (AMB) | payer MEDICARE, BC, SELFPAY ==
--- NOTE | 2025-06-01 11:06 | HO.NEPHOV_ITS ---
Vital Signs 06/01/25 11:07 Height 6 ft Weight 202 lb 4 oz BMI 27.4 BP 130/70 Blood Pressure Location Lt brachial Position Sitting Pulse 65 Pulse Source Pulse Oximeter Pulse Oximetry (%) 92 Oxygen Delivery Method Room Air Intake Visit Reasons: 1mon f/u-Conf Assistant Professor Of Philosophy Required: No Accompanied by: Self / Same As Patient Allergies No Known Allergies (No Known Allergies*) Allergy (Verified 06/01/25 11:06) HPI Comments Details: I had the pleasure of seeing Chato in follow up for CKD and hypertension. He is known to have hypertension for a long time and had been on losartan/hydrochlorothiazide as well as carvedilol. His blood pressure has been at goal. He has lot of stressors at home. 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 He has history of prostate cancer which has been treated. He has history of bilateral sensorineural deafness. He denies any coronary artery disease, carotid stenosis, congestive heart failure, CVA, peripheral arterial disease. He has no history of hematuria, proteinuria, epistaxis, photosensitivity, recurrent sinusitis, sore throat, excessive nonsteroidal anti-inflammatory medication intake, new bone or back pain. His recent serum creatinine has been around 1.5. He was found to be P ANCA positive but 2 repeat ones were negative . He denied any other systemic complaints. [facility] Medical History (Updated 04/27/25 @ 09:22 by Seth Saunders MD) Chronic kidney disease, stage 3a Melanoma of left upper arm Insomnia History of basal cell carcinoma of skin Hearing loss sensory, bilateral Glaucoma Essential (primary) hypertension Surgical History History of back surgery H/O arthroscopy of knee H/O arthroscopy of shoulder Family History Mother Cancer Social History Alcohol intake: current Patient Tobacco Use Status: Never used Tobacco Review of Systems Const All systems reviewed & are unremarkable except as noted in HPI and below Physical Exam Vital Signs: Last Vital Signs Pulse 65 06/01/25 11:07 BP 130/70 06/01/25 11:07 Pulse Ox 92 06/01/25 11:07 Oxygen Delivery Method Room Air 06/01/25 11:07 BMI result Body Mass Index 27.4 Const General: comfortable and no acute distress Orientation/consciousness: patient oriented x3 HEENT Head: Yes normocephalic Mouth: Normal oral and palatal mucosa present Eyes EOM: EOMs intact bilaterally Neck Neck: Yes supple Resp Auscultation: clear to auscultation bilaterally Cardio Jugular venous distension: no JVD Rate: regular rate GI Palpation (GI): Soft to palpation Auscultation: normal bowel sounds General: Yes no CVA tenderness Back/Spine/Pelvis Back: no CVA tenderness Skin General skin exam: no rashes or lesions noted Neuro General: patient oriented x3 and moves all extremities Extrem General: Yes no pedal edema Results Reviewed Nephrology Results: Hgb, (14.0-18.0) 15.0 g/dl 12/27/22 WBC, (4.8-10.8) 8.0 X10*3/uL 12/27/22 Plt Count, (160-400) 149 X10*3/uL L 12/27/22 Sodium, (135-145) 139 mmol/L 01/13/23 Potassium, (3.3-5.1) 4.2 mmol/L 01/13/23 Chloride, (96-108) 104 mmol/L 01/13/23 Carbon Dioxide, (22-29) 26 mmol/L 01/13/23 BUN, (9-16) 26 mg/dL H 01/13/23 Creatinine, (0.5-1.4) 1.50 mg/dL H 01/13/23 Calcium, (8.4-10.2) 9.2 mg/dL 04/27/25 Urine Protein, (Neg-Trace) 30 (1+) mg/dL H 04/27/25 Urine Creatinine 111.55 mg/dL 04/27/25 Protein/Creatinin Ratio, (<0.2) 0.20 04/27/25 Renal US 05/16/25 Assessment & Plan Assessment & Plan (1) Chronic kidney disease, stage 3a: Code(s): N18.31 - Chronic kidney disease, stage 3a Category: Medical (2) Essential (primary) hypertension: Code(s): I10 - Essential (primary) hypertension Category: Medical Plan Chato has stage III CKD with hypertension. His CKD may be due to hypertension and age related loss of renal function. His extensive workup showed P ANCA positivity but repeat ones X 2 were negative . He has no RBC in the urine. He is currently on carvedilol 12.5 mg twice daily which I encouraged him to continue. He will be a candidate for SGLT2 inhibitor. There is no indication for any renal biopsy now. He does not take excessive nonsteroidal anti- inflammatories and maintain good hydration. All these possibilities have been discussed in detail. Further management is pending evolving data. Answered all questions. Orders: Orders Electrolytes 6 Months I10 - Essential (primary) hypertension, N18.31 - Chronic kidney disease, stage 3a Creatinine 6 Months I10 - Essential (primary) hypertension, N18.31 - Chronic kidney disease, stage 3a Blood Urea Nitrogen 6 Months I10 - Essential (primary) hypertension, N18.31 - Chronic kidney disease, stage 3a Coding Level of Care Code Est Pt Level 4 (07789) Diagnoses Chronic kidney disease, stage 3a N18.31 Essential (primary) hypertension I10
[2025-06-01 11:07] VITALS: BP 130/70; PULSE 65; O2SAT 92; BMI 27.4
--- OUTSIDE RECORDS SUMMARY | 2025-06-01 13:11 | XMS_ITS | Clinical Summary ---
Author Organization [facility] Address [address] [place] [address] Phone Care Team Providers Care Police Dispatcher Name Role Phone Patrick Mcmillan DO Primary Care Provider [phone] Encounters Date Type Department Care Team Description 03/08/2025 Telephone [facility] [address] [place] [address] Vale Gonzalez MA from Last [...] age to complete this topic Insurance Medicare [facility] [place] Care Teams Police Dispatcher Relationship Specialty Start Date End Date Patrick Mcmillan DO [address] [place] [phone] PCP - General Family Medicine 02/16/25
--- OUTSIDE RECORDS SUMMARY | 2025-06-01 13:11 | XMS_ITS | Patient Health Record ---
Author Organization [facility] Address [address] [place] [address] Care Team Providers Care Regulatory Affairs Manager Name Role Phone Mode Cesar Jr Reason For Referral No Information Plan Of Treatment No Information
--- OUTSIDE RECORDS SUMMARY | 2025-06-01 13:11 | XMS_ITS | Encounter Summary ---
Author Organization [facility] [place], Address [address] [place] [address] Phone Care Team Providers Care Front Man Name Role Phone Patrick Mcmillan DO Primary Care Provider [phone] Encounter Details Date Type Department Care Team (Late st Contact Info) Description 02/16/2025 Documentation Only [facility] [place], [address] [place] [address] Vale Gonzalez [place] [address] [place] [address] Social History Tobacco Use Types [...] on filedocumented in this encounter Care Teams Front Man Relationship Specialty Start Date End Date Patrick Mcmillan DO [address] [place] [phone] PCP - General Family Medicine 02/16/25 documented as of this encounter
--- OUTSIDE RECORDS SUMMARY | 2025-06-01 13:12 | XMS_ITS | Clinical Summary ---
Author Organization [facility] Address [address] [place], [place] [id number] Care Team Providers Care Party Plan Sales Director Name Role Phone Chato Hugo MD Primary [...] age to complete this topic Care Teams Party Plan Sales Director Relationship Specialty Start Date End Date Chato Hugo MD PCP - General Internal Medicine 10/12/18
== END 2025-06-01 11:37 | disposition home or self-care (01) ==
LOC: HO.HKA 10:35
PROVIDERS: PCP Student in an Organized Health Care Education/Training Program; Visit Provider Internal Medicine Nephrology
DX: N18.31 Chronic kidney disease, stage 3a (principal); I10 Essential (primary) hypertension
CPT/HCPCS: 99214

== ENCOUNTER → 2025-06-01 10:35 | Outpatient (BNVA) | payer MEDICARE, BC, SELFPAY | PROVIDERS: PCP Student in an Organized Health Care Education/Training Program; Visit Provider Internal Medicine Nephrology | DX: N18.31 Chronic kidney disease, stage 3a (principal); I12.9 Hypertensive chronic kidney disease with stage 1 through stage 4 chronic kidney disease, or unspecified chronic kidney disease | CPT/HCPCS: 99212 ==